=== PATIENT | female | born 1965 | race Caucasian/White ===

== ENCOUNTER 2022-05-08 19:30 | Emergency (ER) | payer OTHER ==
[2022-05-08 20:03] VITALS: BP 99/71; PULSE 81; RESP 18; TEMP 98.8; BMI 29.3
== END 2022-05-08 23:15 | disposition home or self-care (01) ==
LOC: FER 19:30
DX: S82.821A Torus fracture of lower end of right fibula, initial encounter for closed fracture (principal); W01.0XXA Fall on same level from slipping, tripping and stumbling without subsequent striking against object, initial encounter
CPT/HCPCS: 73610-TC-RT-FY; 73630-TC-RT-FY; 99283-25